=== PATIENT | female | born 1930 | race Caucasian/White ===

== ENCOUNTER 2016-06-16 18:26 | Emergency (ER) | payer MEDICARE, OTHER ==
[2016-06-16] MEDS ORDERED: Ibuprofen 200 MG TAB ONE (19:20)
--- NOTE | 2016-06-16 19:55 | ERRECORD ---
[facility] EMERGENCY RECORD HPI HEAD INJURY (21:07 [facility]) CHIEF COMPLAINT: Patient presents for evaluation of head contusion. HISTORIAN: History provided by patient, 86F self presents to the ED after she tripped over her dog and fell, hitting the bag of her head on the ground. She denies loss of consciousness and has minimal pain. Drove herself to the hospital. Denies nausea or headache. Is not on any anticoagulants. MECHANISM OF INJURY: Mechanism of injury fall, from standing. LOCATION: Symptoms are localized, most severe in the occipital region. TIME COURSE: Sudden onset of symptoms. ASSOCIATED WITH: No associated loss of consciousness, Associated with swelling. EXACERBATED BY: Patient's condition exacerbated by nothing. RELIEVED BY: Patient's condition relieved by nothing. RISK FACTORS: Intracranial bleed risk factors, advanced age. ROS (21:09 [facility]) CONSTITUTIONAL: Negative constitutional review of systems, Historian denies chills, denies fever. EYES: Negative eye review of systems, Historian denies eye pain, denies vision changes. ENT: Negative ears, nose, throat review of systems, Historian denies rhinorrhea, denies sore throat, denies voice changes. CARDIOVASCULAR: Negative cardiovascular review of systems, Historian denies chest pain, denies palpitations. RESPIRATORY: Negative respiratory review of systems, Historian denies cough, denies shortness of breath. GI: Negative gastrointestinal review of systems, Historian denies abdominal pain, denies constipation, denies diarrhea, denies nausea, denies vomiting. GENITOURINARY FEMALE: Negative genitourinary review of systems, Historian denies dysuria, denies frequency. MUSCULOSKELETAL: Negative musculoskeletal review of systems, Historian denies back pain, denies fall, denies injury. SKIN: Negative skin review of systems, Historian denies rash, denies skin changes. NEUROLOGIC: Negative neurologic review of systems, Historian denies headache, denies mental status changes, denies paralysis, denies paresthesias, denies sensory changes. HEMO/LYMPHATIC: Normal hematologic/lymphatic system review, Historian denies abnormal blood clotting. ALLERGIC/IMMUNOLOGIC: Normal allergy/immunologic system review, Historian denies frequent infections. PAST MEDICAL HISTORY (18:40 [facility]) MEDICAL HISTORY: Notes: Sciatica, Macular Degeneration, Flu vaccine not up to date, Tetanus not up to date, Pneumococcal vaccine up to date. FEMALE SURGICAL HISTORY: bilateral knee replacements, &a-1R&a+25V*p+0X*p2107L*c202B*c15G*c2P*p-0X&a-25V&a+1R Name: Caren Jones : 1930 F86 MedRec: [id number] AcctNum: [id number] Prepared: Sat Jun 16, 2016 21:17 by Interface Page 1 of 4 pMD [facility] EMERGENCY RECORD Surgical history of appendectomy, Surgical history of hysterectomy. PSYCHIATRIC HISTORY: No previous psychiatric history. SOCIAL HISTORY: Patient drinks socially, Patient denies drug use, Patient has no smoking history. KNOWN ALLERGIES No Known Drug Allergies CURRENT MEDICATIONS (18:50 [facility]) None VITAL SIGNS VITAL SIGNS: BP: 177/78, Pulse: 87, Resp: 18 (Non-Labored), Pain: 8, O2 sat: 97 on Room Air, Time: 06/16/2016 18:40. (18:40 [facility]) Temp: 99.2 (Oral), Time: 06/16/2016 18:41. (18:41 [facility]) BP: 122/92, Pulse: 96, Resp: 20 (Non-Labored), O2 sat: 93 on Room Air, Time: 06/16/2016 18:46. (18:46 [facility]) BP: 130/85, Pulse: 71, Resp: 18 (Non-Labored), Pain: 6, O2 sat: 96 on Room Air, Time: 06/16/2016 19:30. (19:30 [facility]) PHYSICAL EXAM (21:09 [facility]) CONSTITUTIONAL: Vital signs reviewed, Patient afebrile, Pulse normal, Blood pressure normal, Respiratory rate normal, Patient appears non toxic, Patient appears pain free, Patient alert and oriented to person, place and time. HEAD: contusion, Contusion to right occipital. EYES: Eye exam normal, Eye exam included findings of eyelids normal to inspection, Pupils equally round and reactive to light, Extraocular muscles intact, no nystagmus. ENT: ENT exam normal, Ear exam normal, external ear normal, tympanic membranes normal, no bleeding, Pharynx exam normal, Uvula exam normal, Tonsil exam normal, Mouth exam normal, mucous membranes moist, teeth normal. NECK: Neck exam normal, Neck exam included findings of normal range of motion, Trachea midline, no meningeal signs, no cervical adenopathy, no tenderness. RESPIRATORY CHEST: Respiratory and chest exam normal, Respiratory exam included findings of no respiratory distress, Breath sounds clear. CARDIOVASCULAR: Cardiovascular assessment normal, Cardiovascular exam included findings of heart rate regular rate and rhythm, Heart sounds normal. ABDOMEN FEMALE: Abdominal exam included findings of abdomen nontender, Bowel sounds normal, no distension, no mass, no pulsatile masses, no peritoneal signs, no rigidity, no guarding, no rebound, Rovsing's sign absent. BACK: Back exam normal, Back exam included findings of normal inspection, range of motion normal, no tenderness. &a-1R&a+25V*p+0X*o2568U*c202B*c15G*c2P*p-0X&a-25V&a+1R Name: Caren Jones : 1930 F86 MedRec: [id number] AcctNum: [id number] Prepared: Sat Jun 16, 2016 21:17 by Interface Page 2 of 4 pMD [facility] EMERGENCY RECORD UPPER EXTREMITY: Upper extremity exam normal, Upper extremity exam included findings of inspection normal, Range of motion normal, Motor strength normal, Sensation intact, Radial pulse normal. LOWER EXTREMITY: Lower extremity exam normal, Lower extremity exam included findings of inspection normal, Range of motion normal, Motor strength normal, Sensation intact, Posterior tibial pulse normal, Pedal pulse normal. NEURO: Neuro exam normal, Neuro exam findings include patient oriented to person, place and time, Speech normal, Gait normal, Cranial nerves intact, no focal motor deficits, no focal sensory deficits. SKIN: Skin exam normal, Skin exam included findings of skin warm, dry, and normal in color, no rash. PSYCHIATRIC: Psychiatric exam normal, Normal affect. RADIOLOGYINTERPRETATION (21:10 [facility]) HEAD: Head CT negative. NECK: Cervical spine CT negative. MEDICATION ADMINISTRATION SUMMARY Drug Name: Motrin, Dose Ordered: 600 mg, Route: Oral, Status: Given, Time: 19:22 06/16/2016, Detailed record available in Medication Service section. DOCTOR NOTES (21:11 [facility]) TEXT: Patient presented after a trip and fall with occipital head contusion. Radiology studies reassuring, and patient has remained neurologically intact. Ambulating without difficulty. Appropriate for outpatient follow up. Encouraged return should she develop worsening headache, nausea, vomiting, or lightheadedness. PATIENT STATUS: Patient has improved since arrival to emergency department. PATIENT PLAN: The patient will be discharged. DATA REVIEWED: Xray data reviewed. PROBLEM LIST No recorded problems DIAGNOSIS (19:14 [facility]) FINAL: PRIMARY: head contusion. PRESCRIPTION No recorded prescriptions DISPOSITION PATIENT: Disposition Type: Discharge, Disposition: *Discharge Home. (19:14 [facility]) Patient left the department. (19:40 [facility]) &a-1R&a+25V*p+0X*o8680D*c202B*c15G*c2P*p-0X&a-25V&a+1R Name: Robert Kevinsudeep Ceja : 1930 F86 MedRec: [id number] AcctNum: [id number] Prepared: Sat Jun 16, 2016 21:17 by Interface Page 3 of 4 pMD [facility] EMERGENCY RECORD Gold: AADK=JOLENE Terry, Tara JJAC=MD Cony, Cal LGIB=JOLENE Maldonado, Demi &a-1R&a+25V*p+0X*a0201U*c202B*c15G*c2P*p-0X&a-25V&a+1R Name: RobertCaren : 1930 F86 MedRec: [id number] AcctNum: [id number] Prepared: Siva Jun 16, 2016 21:17 by Interface Page 4 of 4 pMD MTDD
--- NOTE | 2016-06-16 20:02 | PICIS ---
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 NO LOC, AOX4, NAD. NO blood thinners. pain on back of head. PATIENT: NAME: Caren Jones, AGE: 86, GENDER: female, : Sat 1930, TIME OF GREET: Sat Jun 16, 2016 18:26, PREFERRED LANGUAGE: Mosotho, ETHNICITY: Not or , ECODE BILLING MAP: [place], SSN: [id number], Zip Code: [address], KG WEIGHT: 81.65, PHONE: , , , PERSON ID: [id number], PAYMENT: [employer], PCP: DO MATHEW JOHN SCOTT. COMPLAINT: HIGH RISK COMPLAINT: head injury. ADMISSION: URGENCY: 3 Urgent, ADMISSION SOURCE: Home, TRANSPORT: CAR, BED: TRIAGE. PROVIDERS: TRIAGE NURSE: Demi Maldonado RN. KNOWN ALLERGIES No Known Drug Allergies CURRENT MEDICATIONS (18:50 [facility]) None VITAL SIGNS VITAL SIGNS: BP: 177/78, Pulse: 87, Resp: 18 (Non-Labored), Pain: 8, O2 sat: 97 on Room Air, Time: 06/16/2016 18:40. (18:40 [facility]) Temp: 99.2 (Oral), Time: 06/16/2016 18:41. (18:41 [facility]) BP: 122/92, Pulse: 96, Resp: 20 (Non-Labored), O2 sat: 93 on Room Air, Time: 06/16/2016 18:46. (18:46 [facility]) BP: 130/85, Pulse: 71, Resp: 18 (Non-Labored), Pain: 6, O2 sat: 96 on Room Air, Time: 06/16/2016 19:30. (19:30 [facility]) NURSING ASSESSMENT: NEURO (18:42 [facility]) GCS: (6) Obeying command:, (5) Orientated:, (4) Spontaneous eye opening., Result: 15. CONSTITUTIONAL: Complex assessment performed, Patient arrives ambulatory, Gait steady, History obtained from patient, Patient appears comfortable, Patient cooperative, Patient alert, Oriented to person, place and time, Skin warm, Skin dry, Skin normal in color, Mucous membranes pink, Mucous membranes moist, Patient is well-groomed, Patient complains of head injury, PT REPORTS SHE WAS TRIPPED UP BY HER DOGS AND FELL ONTO HER CONCRETE DRIVEWAY. HIT THE BACK OF HER HEAD. DENIES LOC, WAS ABLE TO GET UP AND DRIVE HERSELF TO THE ER. PT REPORTS HAVING ALTERATION IN SENSES. AOX4, NAD, RR EVEN AND UNLABORED ON ARRIVAL. PAIN: aching pain, to the occipital region, Onset of pain 06/16/2016 1730, on a scale 0-10 patient rates pain as 8. NEURO: Pupils equally round and reactive to light, Left pupil 3 mm in size, Able to close eyes, Face symmetrical, Speech normal, Hand grasps equal, Upper extremity strength strong, Lower extremity &a-1R&a+25V*p+0X*s8582E*c202B*c15G*c2P*p-0X&a-25V&a+1R Name: Caren Jones : 1930 F86 MedRec: [id number] AcctNum: [id number] Prepared: Sat Jun 16, 2016 21:24 by Interface Page 1 of 6 pMD [facility] EMERGENCY RECORD strength strong, Foot press equal, no associated dizziness present, no associated loss of consciousness, no associated vomiting. ENT: Ear assessment findings include ear normal to inspection, Nasal assessment findings include nose normal to inspection, Mouth and throat assessment findings include mouth inspection normal. NURSING PROCEDURE: NURSE NOTES (19:06 [facility]) NURSES NOTES: Notes: REPORT GIVEN TO TARA RN AND JOLENE HAILE. NAD, RR EVEN AND UNLABORED. NURSING PROCEDURE: SPINE PRECAUTIONS SPINE PRECAUTIONS: Spinal precautions indicated by mechanism of injury, Cervical collar applied. (18:48 [facility]) REMOVAL: Cervical collar removed, by order from Dr. CLARKE, removed by DR CLARKE. (19:18 [facility]) FOLLOW-UP: After procedure, airway patent, After procedure, movement to extremities, After procedure, no numbness to extremities, After procedure, no tingling to extremities. (19:19 [facility]) SAFETY: Side rails up, Cart/Stretcher in lowest position, Call light within reach, Hospital ID band on, Patient in view of the nursing station. (19:19 [facility]) NURSING PROCEDURE: TRANSPORT TO TESTS TRANSPORT TO TESTS: Transport indicated to facilitate diagnosis, Patient transported to CT scan, via cart, Accompanied by x-ray armorer technician. (18:50 [facility]) FOLLOW-UP: After procedure, patient returned to emergency department. (19:05 [facility]) SAFETY: Side rails up, Cart/Stretcher in lowest position, Call light within reach, Hospital ID band on, Patient in view of the nursing station. (19:05 [facility]) ORDER DETAILS Order Name: CT Brain WO Con, Status: Active, Time: 18:45 06/16/2016, User: [facility], - Ordered for: MD Clarke Jason, - Entered by: JOLENE Maldonado Lauren - Sat Jun 16, 2016 18:45, - Quantity: 1, Order Name: CT Cervical Spine WO Con, Status: Active, Time: 18:46 06/16/2016, [facility], - Ordered for: MD Clarke Jason, - Entered by: MD Clarke Jason - Sat Jun 16, 2016 18:46, - Quantity: 1. MEDICATION ADMINISTRATION SUMMARY Drug Name: Motrin, Dose Ordered: 600 mg, Route: Oral, Status: Given, Time: 19:22 06/16/2016, Detailed record available in Medication Service section. &a-1R&a+25V*p+0X*a4200Y*c202B*c15G*c2P*p-0X&a-25V&a+1R Name: Caren Jones : 1930 F86 MedRec: [id number] AcctNum: [id number] Prepared: Sat Jun 16, 2016 21:24 by Interface Page 2 of 6 pMD [facility] EMERGENCY RECORD MEDICATION SERVICE (19:22 [facility]) Motrin: Order: Motrin (ibuprofen) - Dose: 600 mg : Oral Ordered by: Cal Clarke MD Entered by: Cal Clarke MD Sat Jun 16, 2016 19:19 Documented as given by: Tara Terry RN Sat Jun 16, 2016 19:22 Patient, Medication, Dose, Route and Time verified prior to administration. Amount given: 600 MG, Site: Medication administered P.O., Patient appears Awake and alert- acceptable, Correct patient, time, route, dose and medication confirmed prior to administration, Patient advised of actions and side-effects prior to administration, Allergies confirmed and medications reviewed prior to administration, Patient in position of comfort, Side rails up, Cart in lowest position, Call light in reach. HPI HEAD INJURY (21:07 [facility]) CHIEF COMPLAINT: Patient presents for evaluation of head contusion. HISTORIAN: History provided by patient, 86F self presents to the ED after she tripped over her dog and fell, hitting the bag of her head on the ground. She denies loss of consciousness and has minimal pain. Drove herself to the hospital. Denies nausea or headache. Is not on any anticoagulants. MECHANISM OF INJURY: Mechanism of injury fall, from standing. LOCATION: Symptoms are localized, most severe in the occipital region. TIME COURSE: Sudden onset of symptoms. ASSOCIATED WITH: No associated loss of consciousness, Associated with swelling. EXACERBATED BY: Patient's condition exacerbated by nothing. RELIEVED BY: Patient's condition relieved by nothing. RISK FACTORS: Intracranial bleed risk factors, advanced age. ROS (21:09 [facility]) CONSTITUTIONAL: Negative constitutional review of systems, Historian denies chills, denies fever. EYES: Negative eye review of systems, Historian denies eye pain, denies vision changes. ENT: Negative ears, nose, throat review of systems, Historian denies rhinorrhea, denies sore throat, denies voice changes. CARDIOVASCULAR: Negative cardiovascular review of systems, Historian denies chest pain, denies palpitations. RESPIRATORY: Negative respiratory review of systems, Historian denies cough, denies shortness of breath. GI: Negative gastrointestinal review of systems, Historian denies abdominal pain, denies constipation, denies diarrhea, denies nausea, denies vomiting. GENITOURINARY FEMALE: Negative genitourinary review of systems, Historian denies dysuria, denies frequency. &a-1R&a+25V*p+0X*c8177J*c202B*c15G*c2P*p-0X&a-25V&a+1R Name: Caren Jones : 1930 F86 MedRec: [id number] AcctNum: [id number] Prepared: Sat Jun 16, 2016 21:24 by Interface Page 3 of 6 pMD [facility] EMERGENCY RECORD MUSCULOSKELETAL: Negative musculoskeletal review of systems, Historian denies back pain, denies fall, denies injury. SKIN: Negative skin review of systems, Historian denies rash, denies skin changes. NEUROLOGIC: Negative neurologic review of systems, Historian denies headache, denies mental status changes, denies paralysis, denies paresthesias, denies sensory changes. HEMO/LYMPHATIC: Normal hematologic/lymphatic system review, Historian denies abnormal blood clotting. ALLERGIC/IMMUNOLOGIC: Normal allergy/immunologic system review, Historian denies frequent infections. PAST MEDICAL HISTORY (18:40 [facility]) MEDICAL HISTORY: Notes: Sciatica, Macular Degeneration, Flu vaccine not up to date, Tetanus not up to date, Pneumococcal vaccine up to date. FEMALE SURGICAL HISTORY: bilateral knee replacements, Surgical history of appendectomy, Surgical history of hysterectomy. PSYCHIATRIC HISTORY: No previous psychiatric history. SOCIAL HISTORY: Patient drinks socially, Patient denies drug use, Patient has no smoking history. PHYSICAL EXAM (21:09 [facility]) CONSTITUTIONAL: Vital signs reviewed, Patient afebrile, Pulse normal, Blood pressure normal, Respiratory rate normal, Patient appears non toxic, Patient appears pain free, Patient alert and oriented to person, place and time. HEAD: contusion, Contusion to right occipital. EYES: Eye exam normal, Eye exam included findings of eyelids normal to inspection, Pupils equally round and reactive to light, Extraocular muscles intact, no nystagmus. ENT: ENT exam normal, Ear exam normal, external ear normal, tympanic membranes normal, no bleeding, Pharynx exam normal, Uvula exam normal, Tonsil exam normal, Mouth exam normal, mucous membranes moist, teeth normal. NECK: Neck exam normal, Neck exam included findings of normal range of motion, Trachea midline, no meningeal signs, no cervical adenopathy, no tenderness. RESPIRATORY CHEST: Respiratory and chest exam normal, Respiratory exam included findings of no respiratory distress, Breath sounds clear. CARDIOVASCULAR: Cardiovascular assessment normal, Cardiovascular exam included findings of heart rate regular rate and rhythm, Heart sounds normal. ABDOMEN FEMALE: Abdominal exam included findings of abdomen nontender, Bowel sounds normal, no distension, no mass, no pulsatile masses, no peritoneal signs, no rigidity, no guarding, no rebound, Rovsing's sign absent. &a-1R&a+25V*p+0X*i2863P*c202B*c15G*c2P*p-0X&a-25V&a+1R Name: Caren Jones : 1930 F86 MedRec: [id number] AcctNum: [id number] Prepared: Sat Jun 16, 2016 21:24 by Interface Page 4 of 6 pMD [facility] EMERGENCY RECORD BACK: Back exam normal, Back exam included findings of normal inspection, range of motion normal, no tenderness. UPPER EXTREMITY: Upper extremity exam normal, Upper extremity exam included findings of inspection normal, Range of motion normal, Motor strength normal, Sensation intact, Radial pulse normal. LOWER EXTREMITY: Lower extremity exam normal, Lower extremity exam included findings of inspection normal, Range of motion normal, Motor strength normal, Sensation intact, Posterior tibial pulse normal, Pedal pulse normal. NEURO: Neuro exam normal, Neuro exam findings include patient oriented to person, place and time, Speech normal, Gait normal, Cranial nerves intact, no focal motor deficits, no focal sensory deficits. SKIN: Skin exam normal, Skin exam included findings of skin warm, dry, and normal in color, no rash. PSYCHIATRIC: Psychiatric exam normal, Normal affect. EVENTS TRANSFER: Triage to Emergency Triage. (Sat Jun 16, 2016 18:37 [facility]) Emergency Triage to Emergency Room -01. (18:38 [facility]) Removed from Emergency Emergency Room -01. (19:40 [facility]) RADIOLOGYINTERPRETATION (21:10 [facility]) HEAD: Head CT negative. NECK: Cervical spine CT negative. DOCTOR NOTES (21:11 [facility]) TEXT: Patient presented after a trip and fall with occipital head contusion. Radiology studies reassuring, and patient has remained neurologically intact. Ambulating without difficulty. Appropriate for outpatient follow up. Encouraged return should she develop worsening headache, nausea, vomiting, or lightheadedness. PATIENT STATUS: Patient has improved since arrival to emergency department. PATIENT PLAN: The patient will be discharged. DATA REVIEWED: Xray data reviewed. PROBLEM LIST No recorded problems DIAGNOSIS (19:14 [facility]) FINAL: PRIMARY: head contusion. DISPOSITION PATIENT: Disposition Type: Discharge, Disposition: *Discharge Home. (19:14 [facility]) Patient left the department. (19:40 [facility]AD[facility]) &a-1R&a+25V*p+0X*f5577Q*c202B*c15G*c2P*p-0X&a-25V&a+1R Name: Caren Jones : 1930 F86 MedRec: [id number] AcctNum: [id number] Prepared: Sat Jun 16, 2016 21:24 by Interface Page 5 of 6 pMD [facility] EMERGENCY RECORD INSTRUCTION (19:16 [facility]) DISCHARGE: CLOSED HEAD INJURY WITH WAKEUP ADULT. FOLLOWUP: DO PRIYANKA, JAKE ELISE, [facility], [address] [place] [address], . SPECIAL: If you have worsening headache, nausea, or confusion, return to the ED. Tylenol or Advil for Pain. PRESCRIPTION No recorded prescriptions IMAGING (19:40 [facility]) *DISCHARGE INSTRUCTIONS RECEIPT: Image captured from scanner. *SUPPLY CHARGE SHEET: Image captured from scanner. ADMIN (21:12 [facility]) DIGITAL SIGNATURE: MD Cony, Cal. MD Cony, Cal. MD Clarke Jason. Gold: AADK=JOLENE Terry, Tara JJAC=MD Clarke Jason LGIB=JOLENE Maldonado, Demi &a-1R&a+25V*p+0X*l6989J*c202B*c15G*c2P*p-0X&a-25V&a+1R Name: Caren Jones : 1930 F86 MedRec: [id number] AcctNum: [id number] Prepared: Sat Jun 16, 2016 21:24 by Interface Page 6 of 6 pMD MTDD
--- NOTE | 2016-06-16 23:13 | CT ---
CT CERVICAL SPINE 06/16/[address] of the cervical spine was done following trauma. Axial slices were acquired, then coronal and sagittal reconstructions were done. No fracture, dislocation, or acute bony change was seen at any cervical level. The C1 to dens distan ce is normal and the soft tissues are normal in thickness. Findings by level follow: C1-C2: No acute findings. C2-C3: No acute findings. C3-C4: Moderate right foraminal narrowing. C4-C5: Moderate right foraminal narrowing and moderate to severe left foraminal narrowing due to ost eophytes. C5-C6: Moderate right foraminal narrowing and mild left foraminal narrowing. The AP diameter of the spinal canal at this level is adequate at 10 mm. C6-C7: No significant narrowing. C7-T1: No acute findings. T1-T2: No acute findings. Lung apices clear with no evidence of pneumothorax IMPRESSION: Mild degenerative changes but no acute findings. POS: HOME
--- NOTE | 2016-06-16 23:17 | CT ---
CT OF THE BRAIN WITHOUT CONTRAST 06/16/[address] shows normal sized ventricles for age. No intracranial bleeding or extra-axial maksim jeanna was seen. There was no sign of acute stroke, mass, or edema. The calvarium appears intact. Ther e is no air fluid level in the sphenoid sinus or visible paranasal sinuses. IMPRESSION: No acute intracranial finding. POS: HOME
== END 2016-06-16 19:40 | disposition home or self-care (01) ==
LOC: BURERS 18:26
DX: S00.93XA Contusion of unspecified part of head, initial encounter (principal); W01.0XXA Fall on same level from slipping, tripping and stumbling without subsequent striking against object, initial encounter
CPT/HCPCS: 70450; 72125